=== PATIENT | male | born 1985 | race American Indian/Alaskan Native ===

== ENCOUNTER 2017-12-04 08:50 | Emergency (ER) | payer MEDICARE ==
[2017-12-04 12:09] VITALS: BP 154/105
[2017-12-04] MEDS ORDERED: TETRACAINE 0.5% OU PRN (12:28)
[2017-12-04] MEDS ORDERED: FUL-GLO OP ONE (12:28)
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
[2017-12-04] MEDS ORDERED: MOTRIN PO ONE (12:39)
== END 2017-12-04 12:54 | disposition home or self-care (01) ==
LOC: ED 08:50
DX: S05.02XA Injury of conjunctiva and corneal abrasion without foreign body, left eye, initial encounter (principal); J45.909 Unspecified asthma, uncomplicated; F17.200 Nicotine dependence, unspecified, uncomplicated